=== PATIENT | male | born 1975 | race Caucasian/White ===

== ENCOUNTER 2024-06-02 04:02 | Emergency (ER) | payer BC ==
[2024-06-02] MEDS: Metoclopramide 10 MG/2 ML SDV IVPUSH ONE ×2 (04:31→07:31)
[2024-06-02] MEDS: HYDROmorphone 1 MG/ML Syringe IVPUSH ONE ×2 (04:31→05:17)
[2024-06-02] MEDS: Dextrose 5%-0.9% NaCl 1,000 ML IV SCH (04:32)
[2024-06-02 04:42] LABS: BASOPHILS ABSOLUTE AUTO 0.1 K/mm3 (0.0-0.2); BASOPHILS PERCENT AUTO 0.5 % (0.0-1.0); EOSINOPHILS ABSOLUTE AUTO 0.1 K/mm3 (0.0-0.4); EOSINOPHILS PERCENT AUTO 1.4 % (0.0-6.0); HEMATOCRIT 44.1 % (42.0-52.0); HEMOGLOBIN 14.6 gm/dl (14.0-18.0); IMMATURE GRAN ABSOLUTE AUTO 0.08 K/mm3 (0.00-0.05); IMMATURE GRAN PERCENT AUTO 0.8 % (0.0-0.4); LYMPHOCYTES PERCENT AUTO 10.5 % (24.0-44.0); MEAN CORPUSCULAR HGB CONC 33.1 g/dl (32.0-36.0); MEAN CORPUSCULAR VOLUME 84.6 fl (83.0-99.0); MEAN PLATELET VOLUME 10.3 fl (9.4-12.4); MONOCYTES ABSOLUTE AUTO 0.9 K/mm3 (0.0-0.8); MONOCYTES PERCENT AUTO 9.7 % (0.0-8.0); NEUTROPHILS ABSOLUTE AUTO 7.3 K/mm3 (1.8-7.7); NEUTROPHILS PERCENT AUTO 77.1 % (41.0-71.0); PLATELET COUNT,PLT 304 K/mm3 (150-400); RED BLOOD CELL COUNT 5.21 M/mm3 (4.52-5.90); WHITE BLOOD CELL COUNT,WBC 9.42 K/mm3 (3.9-11.3)
[2024-06-02 04:50] LABS: LACTIC ACID 0.7 mmol/L (0.4-2.0)
[2024-06-02 04:57] LABS: ALBUMIN 3.6 g/dl (3.4-5.0); ANION GAP 13.9 (5-15); BILIRUBIN TOTAL 0.9 mg/dL (0.2-1.0); C-REACTIVE PROTEIN 0.41 mg/dL (<0.30); CALCIUM 8.7 mg/dL (8.5-10.1); CREATININE 1.1 mg/dL (0.7-1.3); EST CRCL DRUG DOSING (CG) 86.52 mL/min; MAGNESIUM 1.6 mg/dL (1.8-2.4); POTASSIUM,K 3.9 mEq/L (3.5-5.1); PROTEIN TOTAL,TP 7.1 g/dl (6.4-8.2)
[2024-06-02] MEDS: Iopamidol 612 MG/ML 100 ML Bottle IVPUSH ONE (05:04)
[2024-06-02] MEDS: HYDROmorphone 0.5 MG/0.5 ML Syringe IVPUSH ONE ×2 (06:13→06:15)
[2024-06-02] MEDS: Magnesium Citrate Solution 296 ML Bottle PO ONE (06:15)
[2024-06-02 06:28] LABS: INR 1.01; PROTHROMBIN TIME 10.7 SECONDS (9.7-12.0)
[2024-06-02] MEDS: Ondansetron 4 MG/2 ML SDV IVPUSH ONE (07:30)
[2024-06-02] MEDS: diphenhydrAMINE 50 MG/ML SDV IVPUSH ONE (07:30)
[2024-06-02] MEDS: Dicyclomine 10 MG Cap PO ONE (10:19)
== END 2024-06-02 10:26 | disposition home or self-care (01) ==
LOC: JD.ED 04:02
DX: R10.31 Right lower quadrant pain (principal); R10.32 Left lower quadrant pain; E11.9 Type 2 diabetes mellitus without complications; Z79.4 Long term (current) use of insulin
CPT/HCPCS: 36415; 74177; 80053; 83605; 83690; 83735; 85025; 85610; 85730; 86140; 96361; 96374; 96375; 96376; 99284; A9270; J1171; J1200; J2405; J2765; J7042; Q9967

== ENCOUNTER 2024-07-26 12:00 | Emergency (ER) | payer BC ==
[2024-07-26] MEDS: Ketorolac 30 MG/ML SDV IM ONE (15:01)
[2024-07-26] MEDS ORDERED: Sodium Chloride 0.9% 10 ML Syringe FLUSH PRN (15:37)
[2024-07-26 16:19] LABS: BASOPHILS PERCENT AUTO 0.2 % (0.0-1.0); HEMATOCRIT 45.1 % (42.0-52.0); HEMOGLOBIN 14.6 gm/dl (14.0-18.0); IMMATURE GRAN ABSOLUTE AUTO 0.02 K/mm3 (0.00-0.05); IMMATURE GRAN PERCENT AUTO 0.2 % (0.0-0.4); LYMPHOCYTES ABSOLUTE AUTO 0.5 K/mm3 (1.0-4.8); LYMPHOCYTES PERCENT AUTO 4.4 % (24.0-44.0); MEAN CORPUSCULAR HEMOGLOBIN 27.8 pg (28.0-32.0); MEAN CORPUSCULAR HGB CONC 32.4 g/dl (32.0-36.0); MEAN CORPUSCULAR VOLUME 85.9 fl (83.0-99.0); MEAN PLATELET VOLUME 10.7 fl (9.4-12.4); MONOCYTES ABSOLUTE AUTO 0.5 K/mm3 (0.0-0.8); MONOCYTES PERCENT AUTO 4.2 % (0.0-8.0); NEUTROPHILS ABSOLUTE AUTO 9.7 K/mm3 (1.8-7.7); PLATELET COUNT,PLT 250 K/mm3 (150-400); RED BLOOD CELL COUNT 5.25 M/mm3 (4.52-5.90); WHITE BLOOD CELL COUNT,WBC 10.65 K/mm3 (3.9-11.3)
[2024-07-26 16:43] LABS: A/G RATIO 1.2 (1-2); ALBUMIN 3.8 g/dl (3.4-5.0); ANION GAP 14.8 (5-15); BILIRUBIN TOTAL 0.6 mg/dL (0.2-1.0); BUN/CREATININE RATIO 11.8 (14-18); CALCIUM 8.8 mg/dL (8.5-10.1); CREATININE 1.1 mg/dL (0.7-1.3); EST CRCL DRUG DOSING (CG) 77.73 mL/min; POTASSIUM,K 3.8 mEq/L (3.5-5.1); PROTEIN TOTAL,TP 6.9 g/dl (6.4-8.2)
[2024-07-26 16:44] LABS: SLIDE REVIEW ABNORMAL SMEAR
[2024-07-26 16:45] LABS: LACTIC ACID 0.7 mmol/L (0.4-2.0)
[2024-07-26] MEDS: Sodium Chloride 0.9% 1,000 ML IV ONE (16:50)
[2024-07-26] MEDS: Morphine 4 MG/ML Syringe IVPUSH PRN (16:50)
[2024-07-26] MEDS: Sodium Chloride 0.9% 10 ML Syringe FLUSH ONE (16:51)
[2024-07-26] MEDS: Iopamidol 612 MG/ML 100 ML Bottle IVPUSH ONE (17:09)
== END 2024-07-26 19:25 | disposition home or self-care (01) ==
LOC: JD.ED 12:00
DX: R10.31 Right lower quadrant pain (principal); R10.817 Generalized abdominal tenderness; E11.9 Type 2 diabetes mellitus without complications; Z86.16 Personal history of COVID-19; Z79.4 Long term (current) use of insulin; Z79.899 Other long term (current) drug therapy
CPT/HCPCS: 36415; 74018; 74177; 80053; 83605; 83735; 85025; 96361; 96372; 96374; 99284; J1885; J2270; J7030; Q9967; 99283

== ENCOUNTER 2024-08-19 09:50 | Day surgery (SDC) | payer BC ==
[~2024-08-19 09:50] MED LIST: Sodium Chloride 0.9% 10 ML Syringe FLUSH PRN; Sodium Chloride 0.9% 10 ML Syringe FLUSH SCH
[2024-08-19] MEDS: Lactated Ringers 1,000 ML IV SCH (10:20)
[2024-08-19] MEDS ORDERED: Lidocaine 2% 5 ML SDV ONE (10:32)
[2024-08-19] MEDS ORDERED: Propofol 200 MG/20 ML SDV ONE ×3 (10:32→11:13)
[2024-08-19] MEDS: Lidocaine 1% with EPINEPHrine 1:100,000 20 ML MDV ONE (10:59)
[2024-08-19] MEDS ORDERED: Ondansetron 4 MG/2 ML SDV ONE (11:09)
[2024-08-19] MEDS ORDERED: Glycopyrrolate 0.2 MG/ML 2 ML SDV ONE (11:09)
== END 2024-08-19 12:27 | disposition home or self-care (01) ==
LOC: JD.SDS 09:50
PROVIDERS: ATTEND Surgery
DX: Z12.11 Encounter for screening for malignant neoplasm of colon (principal); L72.3 Sebaceous cyst; K62.4 Stenosis of anus and rectum; Z85.048 Personal history of other malignant neoplasm of rectum, rectosigmoid junction, and anus; E10.42 Type 1 diabetes mellitus with diabetic polyneuropathy; F17.220 Nicotine dependence, chewing tobacco, uncomplicated; Z79.899 Other long term (current) drug therapy
CPT/HCPCS: 11403; 45330; J2405; J2704; J3490; J7120; 00300